=== PATIENT | female | born 1985 | race Caucasian/White ===

== ENCOUNTER 2016-11-20 15:16 | Inpatient (IN) | payer MEDICAID ==
[~2016-11-20] VITALS: Ht 160 cm; Wt 68.2 kg
[~2016-11-20 15:16] MED LIST: IBUP-1542 PO; PREN1TAB62 PO
[2016-11-20 15:27] VITALS: BP 106/64; PULSE 89; RESP 18
[2016-11-20 15:30] VITALS: Ht 160 cm; Wt 68.2 kg
[2016-11-20] MEDS ORDERED: METHYLERGONOVINE 0.2 MG INJ IM PRN (16:00)
[2016-11-20] MEDS ORDERED: IBUPROFEN 600 MG TAB PO PRN (16:00)
[2016-11-20] MEDS ORDERED: CARBOPROST 250 MCG INJ IM PRN (16:00)
[2016-11-20] MEDS ORDERED: LIDOCAINE 1% (MPF) 30 ML INJ INJ PRN (16:00)
[2016-11-20] MEDS ORDERED: BUTORPHANOL 2 MG INJ IV PRN ×2 (16:00)
[2016-11-20] MEDS ORDERED: OXYTOCIN 30 UNITS/LR 500 ML IV PRN (16:00)
[2016-11-20] MEDS ORDERED: MISOPROSTOL 200 MCG TAB PR PRN (16:00)
[2016-11-20] MEDS: LACTATED RINGER'S 1,000 ML IV SCH (16:04)
[2016-11-20 16:28] LABS: ADD SCAN DIFF NO
[2016-11-20 16:30] LABS: BASOPHILS % 0.2 % (0.0-2.0); EOSINOPHILS # 0.1 10^3/ul (0.0-0.5); EOSINOPHILS % 1.5 % (0.0-7.0); HEMATOCRIT 35.7 % (37.0-47.0); HEMOGLOBIN 12.4 g/dl (12.0-16.0); LYMPHOCYTES # 1.3 10^3/ul (0.8-2.9); LYMPHOCYTES % 14.3 % (15.0-51.0); MEAN CORPUSCULAR HEMOGLOBIN 30.5 pg (29.0-33.0); MEAN CORPUSCULAR HGB CONC 34.7 g/dl (32.0-37.0); MEAN CORPUSCULAR VOLUME 87.7 fl (82.0-101.0); MONOCYTE # 0.7 10^3/ul (0.3-0.9); MONOCYTES % 7.5 % (0.0-11.0); NEUTROPHIL # 6.7 10^3/ul (1.6-7.5); NEUTROPHILS % 75.9 % (39.0-77.0); PLATELET COUNT 221 10^3/UL (140-415); RED BLOOD COUNT 4.07 10^6/ul (4.20-5.40); RED CELL DISTRIBUTION WIDTH 13.2 % (11.5-14.5); WHITE BLOOD COUNT 8.8 10^3/ul (4.8-10.8)
--- NOTE | 2016-11-20 16:47 | TRIAGE ---
OB Triage Datetime Report Generated by CPN: 11/20/2016 16:46 Datetime: 11/20/2016 15:42 Assessment Type: Triage Maternal Assessment Level of Consciousness: Fully Conscious DTR's/Clonus: DTRs 2+; No Clonus Headache: Denies Blurred Vision: No Respiratory Effort: Unlabored; Regular Rhythm; Equal Expansion Breath Sounds, Left: Clear and Equal Breath Sounds, Right: Clear and Equal Nausea/Vomiting: Denies RUQ Epigastric Pain: Denies Lower Extremities Edema: Bilateral Lower Extremities Upper Extremities Edema: None Facial Edema: None Fall Risk Assessment History of Falling: (0) No Secondary Diagnosis: (0) No Ambulatory Aid: (0) Bedrest/Nurse Assist IV Therapy: (0) No Gait: (0) Normal/Bedrest/Immobile Mental Status: (0) Oriented to Own Ability Fall Score: 0 Fall Risk Score Definition: No Risk: No action required Datetime: 11/20/2016 15:39 EGA: 40.0 Datetime: 11/20/2016 15:35 Labor Evaluation Frequency: IRREG Monitor Mode: External Duration (sec)2399: 90 Quality: Moderate Pattern: Normal: <= 5 Contractions in 10 Minutes Resting Tone [place]: Relaxed Heart Rate FHR Baseline Rate: 140 Monitor Mode: External US FHR Baseline Changes: No Baseline Change Variability: Moderate 6-25 bpm Accelerations: 15X15 Decelerations: None Category: Category I Pain Assessment Pain Scale: 5 Pain Presence: Intermittent Pain Type: Contraction Pain Location: Abdomen; Back Pain Goal: 5 Vaginal Exam Dilatation (cms): 4.0 Effacement (%): 50 Station: -3 Exam By: LR RN Vaginal Bleeding: None Cervix, Consistency: Moderate Cervix, Position: Midposition Presentation 'A': Breech Lie 'A': Longitudinal Datetime: 11/20/2016 15:15 Time of Arrival: 11/20/2016 15:15 Arrived By: Wheelchair Arrived From: Home Chief Complaint: UC'S Movement: Present Contractions: Irregular Time Contractions Began: 11/20/2016 09:00 Rupture of Membranes: Denies Vaginal Bleeding: None Vaginal Discharge: Denies Abdominal Trauma: Not Applicable Patient Complaints: Contractions Time Provider Notified: 11/20/2016 16:00 Provider Notified: MICHELLE Initial Plan: NST/VE/MONITOR UC'S
[2016-11-20 17:20] LABS: INR 1.02; PROTIME 13.4 Sec (12.2-14.2)
[2016-11-20 17:21] LABS: PARTIAL THROMBOPLASTIN TIME 29.7 Sec (25.0-35.0)
[2016-11-20] MEDS: LACTATED RINGER'S 1,000 ML IV PRN (19:17)
[2016-11-20] MEDS ORDERED: MINERAL OIL LIGHT 10 ML VIAL TOP ONE (19:30)
[2016-11-20] MEDS ORDERED: OXYTOCIN 30 UNITS/LR 500 ML IV SCH (19:30)
[2016-11-20] MEDS ORDERED: FENTAnyl 2MCG/ML-ROPIV 0.2% 100 ML ONE (19:57)
--- NOTE | 2016-11-20 20:11 | HP ---
Date/Time of Note Date/Time of Note DATE: 11/20/16 TIME: 20:07 OB - History Hx of Present Free Text/Dictation admitted in labor at term Chief Complaint: labor pains Estimated Due Date: Nov 20, 2016 : 5 Para: 4 Care: Good Care Ultrasounds: Normal mid trimester US Obstetrical Complications: None Medical Complications: None Past Family/Social History * Past Medical, Surgical, Family and Obstetric Histories reviewed from chart. Blood Type: B+ Rubella: immune RPR/VDRL: Negative GBS Status: Negative HBsAG: Negative OB Admission Exam Vital Signs Vital Signs Vital Signs Date Time Temp Pulse Resp B/P Pulse Ox O2 Delivery O2 Flow Rate FiO2 11/20/16 15:27 97.9 89 18 106/64 99 Room Air Physical Exam HEENT: WNL Heart: Rhythm Normal Lungs: Clear, Equal Abdomen: WNL Extremities: Normal Reflexes: Normal Cervical Dilatation: 5cm Effacement: 75% Station: -2 Membranes: Intact Heart Rate: 130's Accelerations: Accelerations Present Decelerations: No Decelerations Varibility: Moderate Contractions on Admission: < 5 Minutes Apart Date/Time Contractions Began: 11/20/2016 0900 AM Frequency of Contractions: q10 Duration: >60 seconds Intensity: Mild Last 72 hours Lab Results CBC & BMP 11/20/16 16:04 OB Assessment/Plan Reason for admission: active labor Other Assessment: term gestation Other plan: proceed with labor ADELA CASTRO MD Nov 20, 2016 20:11
[2016-11-20] MEDS ORDERED: FENTAnyl 2MCG/ML-ROPIV 0.2% 100 ML BAG EPI SCH (20:30)
[2016-11-20] MEDS ORDERED: NALOXONE (0.4 MG/ML) INJ IV PRN (20:30)
[2016-11-21] VITALS (7 sets, daily range): BP systolic 87–124; BP diastolic 55–73; PULSE 75–86; RESP 16–18
[2016-11-21] MEDS ORDERED: OXYTOCIN 30 UNITS/LR 500 ML IVPB ONE
[2016-11-21] MEDS ORDERED: OXYTOCIN 30 UNITS/LR 500 ML IV SCH
--- NOTE | 2016-11-21 00:05 | LDN ---
Date/Time of Note Date/Time of Note DATE: 11/21/16 TIME: 00:01 Delivery Summary Vacuome extraction of a viable over intact perineum because of prolonged 2nd stage Weeks of Gestation 40 Assisted Vaginal Delivery: Vacuum Placenta Delivered: Spontaneously, Intact & Complete Meconium: none Episiotomy: No Laceration repair: small vaginal laceration was repaired in layers with 2 0 Chromic Anesthesia type: Epidural Estimated blood loss: 300 Sponge & Needle done & correct: Yes All needle counts correct: Yes Any foreign bodies felt in the: No Problems: Infant Delivery Information Sex Sex: male Apgars 1 Minute: 9 5 Minute: 9 Suctioning Nose & mouth suctioned at rafat: Yes Delee suction performed: No Umbilical Cord Umbilical cord with: 3 Vessels Cord presentations: nuchal cord Nuchal cord present X: 1 Cord Blood was obtained: Yes Mother & Baby Disposition Disposition Mom & Baby to Maternity; Good: Yes (mother and baby were recovered in good condition ) Mom transferred to: Other (maternity) Baby to NICU: No ADELA CASTRO MD Nov 21, 2016 00:05
[2016-11-21] MEDS: LACTATED RINGER'S 1,000 ML IV PRN (00:10)
[2016-11-21] MEDS: LACTATED RINGER'S 1,000 ML IV SCH (00:10)
[2016-11-21] MEDS ORDERED: MEPERIDINE 25 MG INJ IV ONE (01:00)
[2016-11-21] MEDS ORDERED: DIBUCAINE 1% 30 GM OINT PR PRN ×2 (03:00→16:00)
[2016-11-21] MEDS ORDERED: LANOLIN 7 GM TUBE TOP PRN ×2 (03:00→16:00)
[2016-11-21] MEDS ORDERED: METHYLERGONOVINE 0.2 MG INJ IM PRN ×2 (03:00→16:00)
[2016-11-21] MEDS ORDERED: BENZOCAINE 20% 56 ML SPRAY TOP PRN ×2 (03:00→16:00)
[2016-11-21] MEDS ORDERED: OXYTOCIN 30 UNITS/LR 500 ML IV PRN ×2 (03:00→16:00)
[2016-11-21] MEDS ORDERED: ACETAMINOPHEN/CODEINE #3 TAB PO PRN ×3 (03:00→16:00)
[2016-11-21] MEDS ORDERED: ZOLPIDEM 5 MG TAB PO PRN ×2 (03:00→16:00)
[2016-11-21] MEDS ORDERED: WITCH HAZEL/GLYCERIN PAD PR PRN ×2 (03:00→16:00)
[2016-11-21] MEDS ORDERED: CARBOPROST 250 MCG INJ IM PRN ×2 (03:00→16:00)
[2016-11-21] MEDS ORDERED: MISOPROSTOL 200 MCG TAB PR PRN ×2 (03:00→16:00)
[2016-11-21] MEDS: LACTATED RINGER'S 1,000 ML IV* SCH ×3 (05:47→15:58)
[2016-11-21] MEDS: CEPHALEXIN 500 MG CAP PO SCH ×4 (05:49→23:45)
[2016-11-21] MEDS: IBUPROFEN 600 MG TAB PO SCH ×4 (06:13→23:45)
[2016-11-21 07:41] LABS: ADD SCAN DIFF NO
[2016-11-21 07:42] LABS: BASOPHILS % 0.2 % (0.0-2.0); EOSINOPHILS % 0.2 % (0.0-7.0); HEMATOCRIT 37.4 % (37.0-47.0); HEMOGLOBIN 12.9 g/dl (12.0-16.0); LYMPHOCYTES # 1.4 10^3/ul (0.8-2.9); LYMPHOCYTES % 7.8 % (15.0-51.0); MEAN CORPUSCULAR HEMOGLOBIN 30.3 pg (29.0-33.0); MEAN CORPUSCULAR HGB CONC 34.5 g/dl (32.0-37.0); MEAN CORPUSCULAR VOLUME 87.8 fl (82.0-101.0); MEAN PLATELET VOLUME 11.9 fl (7.4-10.4); MONOCYTE # 1.1 10^3/ul (0.3-0.9); MONOCYTES % 5.8 % (0.0-11.0); NEUTROPHIL # 15.8 10^3/ul (1.6-7.5); NEUTROPHILS % 85.5 % (39.0-77.0); PLATELET COUNT 197 10^3/UL (140-415); RED BLOOD COUNT 4.26 10^6/ul (4.20-5.40); WHITE BLOOD COUNT 18.4 10^3/ul (4.8-10.8)
[2016-11-21] MEDS ORDERED: SENNA/DOCUSATE NA (8.6MG/50MG) TAB PO SCH (09:00)
[2016-11-21] MEDS ORDERED: MAGNESIUM HYDROXIDE 30ML CUP PO SCH (09:00)
--- NOTE | 2016-11-21 15:33 | OPR ---
Operative Report Planned Procedure Procedure date Nov 21, 2016 Procedure(s) repeat C/S + BTL Performed by: ADELA CASTRO MD Assisting provider: ILIA GRUBBS MD Anesthesiologist: PAT TIMMONS MD Pre-procedure diagnosis 35 + weeks getation severe PIH Class C DM previous C/S X 2 desires sterilization Anesthesia Type: spinal Procedure Description Under satisfactory anaesthesia a Pfannenstiel incision was made two fingerbreadth above and parallel to the symphysis of pubis around the previous scar and previous scar was removed Incision was extended laterally to the border of the Recti muscles on either sides. Incision was carried down with sharp and blunt dissection until fascia was reached. Anterior Recti muscle fascia was incised in mid portion and incision extended laterally to the border of skin incision. Fascia was mobilized from muscle superiorly and Recti muscles were from midline using sharp and blunt dissection. Peritoneum was visualized; Avoiding bowel and bladder it was incised . Incision was extended superiorly and inferiorly. Bladder blade was placed. Posterior peritoneum covering the lower segment of the uterus and lower segment of the uterus were incised.Low transverse uterine incision was made on lower segment of the uterus. Incision extended laterally to the border of Round Lig. on either sides and baby was delivered from OT. position . Amniotic fluid appeared clear. Cord blood was obtained and cord had 3 vessels . Placenta was delivered spontaneously and appeared intact and complete. Intrauterine cavity was rubbed with a laparotomy sponge. Uterine incision was closed in 2 layers using running stitches of No1 Monocryl. Hemostasis appeared secure. Ovaries and Fallopian tubes were within normal limits. Bilateral Tubal Ligation was performed by following procedure: R fallopian tube was raised in mid portion; a Alexandra clamp was placed below the fimbriae extending to proximal portion of the fallopian tube. Another clamp was placed parallel to the first and after incising the fallopian tube the stump was sutured using 0 Vicryl stitch. Hemostasis was secure . Same procedure was done on fallopian tube on the opposite side. Hemostasis appeared to be secure on ligated sites of either fallopian tubes. Announcing needle, lap sponge and instrument count to be correct abdomen was closed in layers as follows: Peritoneum and Recti muscles with running stitches of 20 Vicryl. Fascia with running stitch of No 1 PDS. Subcutaneous tissue with running stitches of 20 Chromic and skin was closed using bradley. Patient tolerated the procedure well and was transferred to [facility] in good condition. Post-Procedure Post-procedure diagnosis S/P C/S and BTL incisional hernia repair Findings: Live Baby Incisional hernia on R corner of the incision: repaired with running stitches of PDS Specimen removed: Yes Specimen description segment of R and L fallopian tubes Complications: None Pt Condition post procedure: stable Disposition: PACU Physician Certification I, the undersigned physician, hereby certify that I have discussed the procedure described in this consent form with this patient (or the patient's legal sales representative public utilities), including: * The risk and benefits of the procedure; * Any adverse reactions that may reasonably be expected to occur; * Any alternative efficacious methods of treatment which may be medically viable ; * The potential problems that may occur during recuperation; * Potential for blood transfusion and associated risks/benefits; and * Any research or economic interest I may have regarding this treatment. I further certify that the patient/legally responsible person was encouraged to ask question and that all questions were answered. ADELA CASTRO MD Nov 21, 2016 15:33
[2016-11-21] MEDS: ACETAMINOPHEN/CODEINE #3 TAB PO PRN (16:20)
--- NOTE | 2016-11-21 17:22 | PN ---
Date/Time of Note Date/Time of Note DATE: 11/21/16 TIME: 17:20 Assessment/Plan VTE Prophylaxis VTE Prophylaxis Intervention: ambulation Lines/Catheters IV Catheter Type (from Nrs): Peripheral IV Assessment/Plan Assessment/Plan S/P Vaginal delivery desires sterilization will proceed with BTL Subjective 24 Hr Interval Summary Free Text/Dictation S/P vaginal delivery desires sterilization Constitutional: improved, no complaints Eyes: no complaints ENT: no complaints Respiratory: no complaints Cardiovascular: no complaints Gastrointestinal: no complaints Genitourinary: no complaints Musculoskeletal: no complaints Skin: no complaints Neurologic: no complaints Endocrine: no complaints Lymphatic: no complaints Psychological: nl mood/affect, no complaints Immunologic: no complaints Exam/Review of Systems Vital Signs Vitals Vital Signs Date Time Temp Pulse Resp B/P Pulse Ox O2 Delivery O2 Flow Rate FiO2 11/21/16 12:00 98.1 86 16 90/61 Room Air 11/20/16 15:27 99 Intake and Output 11/20/16 11/20/16 11/21/16 15:00 23:00 07:00 Intake Total 1000 ml 3325 ml Output Total 800 ml 1500 ml Balance 200 ml 1825 ml Exam abdomen soft BS + Constitutional: alert, oriented, well developed Psych: nl mood/affect, no complaints Head: atraumatic, normocephalic Eyes: EOMI, PERRL, nl conjunctiva, nl lids, nl sclera ENMT: nl external ears & nose, nl lips & teeth, nl nasal mucosa & septum Neck: non-tender, supple Respiratory: clear to auscultation, normal air movement Cardiovascular: nl pulses, regular rate and rhythm Gastrointestinal: nl liver, spleen, non-tender, soft Genitourinary - Female: uterus (at umbilicus ) Musculoskeletal: nl extremities to inspection, nl gait and stance Extremities: normal pulses Neurological: SENIOR INTERACTIVE DEVELOPER II-XII intact, nl mental status, nl speech, nl strength Skin: nl turgor, No rash or lesions Lymph: nl lymph nodes Results Result Diagram: 11/21/16 0715 Results 24 hrs Laboratory Tests Test 11/21/16 07:15 White Blood Count 18.4 #H Red Blood Count 4.26 Hemoglobin 12.9 Hematocrit 37.4 Mean Corpuscular Volume 87.8 Mean Corpuscular Hemoglobin 30.3 Mean Corpuscular Hemoglobin Concent 34.5 Red Cell Distribution Width 13.0 Platelet Count 197 Mean Platelet Volume 11.9 H Neutrophils % 85.5 H Lymphocytes % 7.8 L Monocytes % 5.8 Eosinophils % 0.2 Basophils % 0.2 Nucleated Red Blood Cells % 0.0 Neutrophils # 15.8 H Lymphocytes # 1.4 Monocytes # 1.1 H Eosinophils # 0.0 Basophils # 0.0 Nucleated Red Blood Cells # 0.0 Medications Medications Current Medications Lactated Ringer's (Lr) 1,000 ml @ 125 mls/hr Q8H IV* ; Start 11/21/16 at 15:58 Ibuprofen (Motrin) 600 mg Q6 PO ; Start 11/21/16 at 18:00 Acetaminophen/ Codeine Phosphate (Tylenol No.3) 1 tab Q4H PRN PO PAIN LEVEL 1- 5 Last administered on 11/21/16t 16:20; Admin Dose 1 TAB; Start 11/21/16 at 16: 00 Acetaminophen/ Codeine Phosphate (Tylenol No.3) 2 tab Q4H PRN PO PAIN LEVEL 6- 10; Start 11/21/16 at 16:00 Zolpidem Tartrate (Ambien) 5 mg QHS PRN PO INSOMNIA; Start 11/21/16 at 16:00 Senna/Docusate Sodium (Senokot-S) 1 tab BID PO ; Start 11/21/16 at 21:00 Magnesium Hydroxide (Milk Of Mag) 30 ml Q12 PO ; Start 11/21/16 at 21:00 Diphtheria/ Tetanus/Acell Pertussis 0.5 ml 0.5 ml ONCE ONCE IM* ; Start at 09:00; Stop 11/23/16 at 09:01 Oxytocin/Lactated Ringer's 500 ml @ 0 mls/hr ONCE PRN IV For Hemorrhage Management; Start 11/21/16 at 16:00 Methylergonovine Maleate (Methergine) 0.2 mg ONCE PRN IM VAGINAL BLEEDING; Start 11/21/16 at 16:00 Carboprost Tromethamine (Hemabate) 250 mcg ONCE PRN IM VAGINAL BLEEDING; Start 11/21/16 at 16:00 Misoprostol (Cytotec) 1,000 mcg ONCE PRN TN VAGINAL BLEEDING; Start 11/21/16 at 16:00 Cephalexin (Keflex) 500 mg Q6 PO ; Start 11/21/16 at 18:00 Bisacodyl (Dulcolax Supp) 10 mg ONCE ONCE TN ; Start 11/22/16 at 10:00; Stop at 10:01 ADELA CASTRO MD Nov 21, 2016 17:22
[2016-11-21] MEDS ORDERED: INSULIN REGULAR 10 ML INJ SC SCH (17:35)
[2016-11-21] MEDS ORDERED: ACCU-CHEK XX SCH (20:05)
[2016-11-21] MEDS: SENNA/DOCUSATE NA (8.6MG/50MG) TAB PO SCH (20:49)
[2016-11-21] MEDS: MAGNESIUM HYDROXIDE 30ML CUP PO SCH (20:49)
[2016-11-22] VITALS (16 sets, daily range): BP systolic 95–127; BP diastolic 48–83; PULSE 70–110; RESP 9–20
[2016-11-22] MEDS: LACTATED RINGER'S 1,000 ML IV* SCH (00:42)
[2016-11-22] MEDS: IBUPROFEN 600 MG TAB PO SCH ×2 (05:48→11:27)
[2016-11-22] MEDS: CEPHALEXIN 500 MG CAP PO SCH ×2 (06:00→11:27)
[2016-11-22] MEDS ORDERED: ROCURONIUM 50 MG INJ ONE (07:00)
[2016-11-22] MEDS ORDERED: BUPIVACAINE 0.25%/EPI (SDV) 30 ML INJ ONE (07:01)
[2016-11-22] MEDS ORDERED: LIDOCAINE 1% (MDV) 20 ML INJ ONE (07:39)
[2016-11-22] MEDS ORDERED: MIDAZOLAM 1 MG/ML 2 ML INJ ONE (07:39)
[2016-11-22] MEDS ORDERED: PROPOFOL 20 ML ONE (07:39)
[2016-11-22] MEDS ORDERED: SUCCINYLCHOLINE CHLORIDE 100 MG/5 ML SYG IV ONE (07:39)
[2016-11-22] MEDS ORDERED: FENTAnyl 50 MCG/ML VIAL ONE ×2 (07:39→08:30)
[2016-11-22] MEDS ORDERED: ROPIVACAINE 0.2% 20 ML VIAL ONE (07:48)
[2016-11-22] MEDS ORDERED: INSULIN GLARGINE [LANtus] 3 ML PEN SC SCH (08:00)
[2016-11-22] MEDS ORDERED: CLINDAMYCIN 900 MG/D5W (PMX) 50 ML IVPB ONE (08:24)
[2016-11-22] MEDS ORDERED: ONDANSETRON 4 MG INJ ONE (08:26)
[2016-11-22] MEDS ORDERED: METOCLOPRAMIDE 10 MG INJ ONE (08:26)
[2016-11-22] MEDS ORDERED: DEXAMETHASONE 4 MG/ML 1 ML INJ ONE (08:26)
[2016-11-22] MEDS ORDERED: FAMOTIDINE 20 MG INJ ONE (08:27)
[2016-11-22] MEDS ORDERED: KETOROLAC 30 MG INJ ONE (08:47)
[2016-11-22] MEDS ORDERED: ACETAMINOPHEN 1000MG/100ML IV 100 ML ONE (08:47)
[2016-11-22] MEDS ORDERED: SUGAMMADEX SODIUM 200 MG/2 ML VIAL IV ONE (08:50)
[2016-11-22] MEDS ORDERED: LACTATED RINGER'S 1,000 ML IV SCH (08:55)
[2016-11-22] MEDS ORDERED: KETOROLAC 60 MG INJ IM STA (08:55)
[2016-11-22] MEDS ORDERED: BUTORPHANOL 2 MG INJ IM ONE (09:00)
--- NOTE | 2016-11-22 09:12 | DS ---
Date/Time of Note Date/Time of Note DATE: 11/22/16 TIME: 09:10 Obstetrical Discharge Record Final Diagnosis Final Diagnosis: Term delivered Other Final Diagnosis S/P vaginal delivery and BTL Vaginal Delivery Obstetrical Delivery: Vacuum Extraction, Bilateral Tubal Ligation Complications Augmentation: Yes Condition on Discharge Physical Assessment Last Vitals: see nurses notes Voiding: Yes Bowel Movement: Yes Breast: Soft, non-tender, Filling Fundus: Firm Abdomen and Incision: soft bs + incision: covered Episiotomy: NA Calf Tenderness: No Patient Condition: Good ADELA CASTRO MD Nov 22, 2016 09:12
--- NOTE | 2016-11-22 09:13 | PD.PPDC ---
VISITOR SERVICES REPRESENTATIVE Discharge Instruction Provider Information Physician Information 31 y/o female had vaginal delivery and PP BTL Condition Patient Condition: Good Diet Diet: Resume Regular Diet Activity/Restrictions Activity: Normal Activity May Shower Restrictions: Nothing in the Vagina Return to Work or School: Jan 07, 2017 Follow-up Follow-up with Physician: 4, Week/Weeks (in clinic) Return to clinic for OB Instructions: Breast Tenderness Depression ADELA CASTRO MD Nov 22, 2016 09:13
[2016-11-22] MEDS ORDERED: ACET1TAB40 PO (09:14)
[2016-11-22] MEDS ORDERED: IBUP-1542 PO (09:14)
--- NOTE | 2016-11-22 09:28 | OPR ---
Operative Report Planned Procedure Procedure date Nov 22, 2016 Procedure(s) bilateral tubal ligation Performed by: ADELA CASTRO MD Anesthesiologist: RADHA HAAS DO Pre-procedure diagnosis S/P vaginal delivery desires sterilization Anesthesia Type: spinal Procedure Description The patient was placed on the OR table in supine position. Spinal anesthesia was placed. A Gordon catheter was then inserted into urinary bladder under aseptic condition. After induction of spinal anesthesia, with the patient in supine position, abdominal area was prepped and draped for usual tubal ligation procedure. Under satisfactory anesthesia, a small incision 2 to 3 cm in length was placed just below belly button, incision extended laterally to 1.5 cm lateral to the linea nigra on either side. Incision was carried down with sharp and blunt dissection until fascia was reached. Anterior recti muscle fascia was incised in the midportion. Incision extended laterally to the border of the skin incision. Peritoneum was visualized. Avoiding bowel or bladder, incision was made in peritoneum, which was extended laterally to the border of the skin incision. Two Army-[employer] retractors were placed inside the incision. Incision was brought up to the level of the left fallopian tube. Fallopian tube was raised in the mid portion. A clamp was placed below the fimbriated end, most of the fallopian tube from the mesosalpinx traversing the isthmus portion of the tube. Another clamp was placed just below the first and 0 Vicryl tie was used to tie the mesosalpinx and the stump of the fallopian tube on the proximal side. Another stitch of the same kind was used for adequate hemostasis. Hemostasis appeared to be secure on ligated sites of the fallopian tube. Tube was incised above the stitched area. Same procedure was done on the fallopian tube on opposite side. Hemostasis appeared to be secure on ligated sites of either fallopian tubes. Ovaries were within normal limits. Uterus appears to be size. Announcing needle, lap, sponge and instrument count to be correct, abdomen was closed in layers as follows: Peritoneum with running stitches of #1 Vicryl, fascia edges of #1 Vicryl, subcutaneous tissue with running stitches of #1 Vicryl, and skin was reapproximated using subcuticular stitches of 4-0 Monocryl on a PS2 needle and also Dermabond was placed on the incision. The patient tolerated the procedure very well and was transferred to postanesthesia recovery room in stable and good condition. ESTIMATED BLOOD LOSS: Less than 5 mL. Post-Procedure Post-procedure diagnosis S/P BTL Findings: normal R and L fallopian tubes Specimen removed: Yes Specimen description segments of R and L fallopian tubes Complications: None Pt Condition post procedure: stable Disposition: PACU Physician Certification I, the undersigned physician, hereby certify that I have discussed the procedure described in this consent form with this patient (or the patient's legal loan representative), including: * The risk and benefits of the procedure; * Any adverse reactions that may reasonably be expected to occur; * Any alternative efficacious methods of treatment which may be medically viable ; * The potential problems that may occur during recuperation; * Potential for blood transfusion and associated risks/benefits; and * Any research or economic interest I may have regarding this treatment. I further certify that the patient/legally responsible person was encouraged to ask question and that all questions were answered. ADELA CASTRO MD Nov 22, 2016 09:28
[2016-11-22] MEDS ORDERED: BISACODYL 10 MG SUPP PR ONE (10:00)
[2016-11-22] MEDS: MAGNESIUM HYDROXIDE 30ML CUP PO SCH (11:32)
[2016-11-22] MEDS: SENNA/DOCUSATE NA (8.6MG/50MG) TAB PO SCH (11:32)
[2016-11-22 11:36] LABS: ADD SCAN DIFF NO
[2016-11-22 11:41] LABS: BASOPHILS % 0.3 % (0.0-2.0); EOSINOPHILS % 0.2 % (0.0-7.0); HEMATOCRIT 35.4 % (37.0-47.0); LYMPHOCYTES # 0.8 10^3/ul (0.8-2.9); LYMPHOCYTES % 6.8 % (15.0-51.0); MEAN CORPUSCULAR HEMOGLOBIN 30.3 pg (29.0-33.0); MEAN CORPUSCULAR HGB CONC 33.9 g/dl (32.0-37.0); MEAN CORPUSCULAR VOLUME 89.4 fl (82.0-101.0); MEAN PLATELET VOLUME 11.4 fl (7.4-10.4); MONOCYTE # 0.1 10^3/ul (0.3-0.9); NEUTROPHIL # 10.5 10^3/ul (1.6-7.5); NEUTROPHILS % 91.4 % (39.0-77.0); PLATELET COUNT 227 10^3/UL (140-415); RED BLOOD COUNT 3.96 10^6/ul (4.20-5.40); RED CELL DISTRIBUTION WIDTH 13.3 % (11.5-14.5); WHITE BLOOD COUNT 11.5 10^3/ul (4.8-10.8)
[2016-11-22] MEDS: ACETAMINOPHEN/CODEINE #3 TAB PO PRN ×2 (15:45)
[2016-11-23] MEDS ORDERED: MEASLES,MUMPS,RUBELLA VACCINE INJ SC* ONE ×2 (09:00)
[2016-11-23] MEDS ORDERED: DIPHTH/TET/ACEL PERTUSS (ADULT) 0.5 ML VIAL IM* ONE ×2 (09:00)
[2016-11-23] MEDS ORDERED: VARICELLA VACCINE LIVE/PF 1,350 UNIT/0.5 ML ML SC* ONE ×2 (09:00)
== END 2016-11-22 17:20 | disposition home or self-care (01) | DRG 767 ==
LOC: OBT 15:16 → L-D 15:16 → OBT 16:30 → L-D 16:30 → PP1 11-21 02:38
PROVIDERS: ADMIT Obstetrics & Gynecology; ATTEND Obstetrics & Gynecology
PROC: 10D07Z6 Extraction of Products of Conception, Vacuum, Via Natural or Artificial Opening (ICD-10-PCS; principal; 2016-11-21)
PROC: 0UQGXZZ Repair Vagina, External Approach (ICD-10-PCS; 2016-11-21)
PROC: 0UB70ZZ Excision of Bilateral Fallopian Tubes, Open Approach (ICD-10-PCS; 2016-11-22)
DX: O63.1 Prolonged second stage (of labor) (principal); O71.4 Obstetric high vaginal laceration alone; O48.0 Post-term pregnancy; Z3A.40 40 weeks gestation of pregnancy; O69.1XX0 Labor and delivery complicated by cord around neck, with compression, not applicable or unspecified; Z30.2 Encounter for sterilization; Z37.0 Single live birth
CPT/HCPCS: 62319; 85025; 85610; 85730; 86592; 86900; 86901; 87340; 88302; 99464; J0131; J0595; J1100; J1885; J2175; J2210; J2250; J2405; J2590; J2765; J2795; J3010; J7120; J7999